=== PATIENT | female | born 2000 | race Caucasian/White ===

== ENCOUNTER 2023-08-02 20:06 | Emergency (ER) | payer SELFPAY ==
[~2023-08-02] VITALS: Ht 165.1 cm; Wt 100.0 kg
[2023-08-02] MEDS ORDERED: Acetaminophen 325 MG TAB PO ONE (21:15)
[2023-08-02 22:15] LABS: URINE APPEARANCE CLEAR (CLEAR/HAZY); URINE BLOOD NEGATIVE (NEGATIVE); URINE COLOR Dark Yellow (YELLOW); URINE GLUCOSE NEGATIVE (NEGATIVE); URINE KETONE 1+ (NEGATIVE); URINE NITRATE NEGATIVE (NEGATIVE); URINE PROTEIN(semi-quant) TRACE (NEGATIVE)
[2023-08-02 22:26] LABS: COLLECTION METHOD CLEAN CATCH
[2023-08-02 23:43] VITALS: BP 111/71; PULSE 77; TEMP 989.3
== END 2023-08-02 23:43 | disposition home or self-care (01) ==
LOC: COL.ER 20:06
PROVIDERS: Emergency Medicine
DX: S53.402A Unspecified sprain of left elbow, initial encounter (principal); S60.212A Contusion of left wrist, initial encounter; M54.50 Low back pain, unspecified; Z91.040 Latex allergy status; W23.0XXA Caught, crushed, jammed, or pinched between moving objects, initial encounter; W22.8XXA Striking against or struck by other objects, initial encounter; Y92.71 Barn as the place of occurrence of the external cause; Y99.0 Civilian activity done for income or pay